=== PATIENT | male | born 1955 | race Caucasian/White ===

== ENCOUNTER 2020-03-15 23:16 | Emergency (ER) | payer BC, MEDICARE ==
--- NOTE | 2020-03-15 23:55 | EDM.PDOC ---
ED HPI GENERAL MEDICAL PROBLEM - General Chief Complaint: Skin Complaint Stated Complaint: TICK BITE Time Seen by Provider: 03/15/20 23:46 Source of Information: Reports: Patient, Family, RN Notes Reviewed History Limitations: Reports: No Limitations - History of Present Illness INITIAL COMMENTS - FREE TEXT/NARRATIVE: 64-year-old gentleman presents emergency department a complaint of a wood tick bite to the back of his left leg, he is positive this was a wood tick not a deer tick but he has noticed some redness and warmth from the bite over the last couple of days - Related Data Allergies Allergy/AdvReac Type Severity Reaction Status Date / Time No Known Allergies Allergy Verified 03/15/20 23:29 Home Meds: Home Meds NK [No Known Home Meds] 03/15/20 [History] Past Medical History HEENT History: Reports: Impaired Vision Musculoskeletal History: Reports: Arthritis Endocrine/Metabolic History: Reports: Obesity/BMI 30+ - Past Surgical History Head Surgeries/Procedures: Reports: None HEENT Surgical History: Reports: None GI Surgical History: Reports: Hernia, Inguinal Endocrine Surgical History: Reports: None Musculoskeletal Surgical History: Reports: Hip Replacement Dermatological Surgical History: Reports: None Social & Family History - Tobacco Use Smoking Status *Q: Never Smoker Second Hand Smoke Exposure: No - Caffeine Use Caffeine Use: Reports: Coffee - Recreational Drug Use Recreational Drug Use: No ED ROS GENERAL - Review of Systems Review Of Systems: See Below Constitutional: Denies: Fever, Chills Skin: Reports: Pallor, Erythema, Wound ED EXAM, SKIN/RASH Exam: See Below Text/Narrative:: Examination of the back of the left leg there is a small ulcer approximately 5 mm in length there is erythema around this progressively getting shrimp picker up to the size of about a softball I do not appreciate any erythema migrans Exam Limited By: No Limitations General Appearance: Alert, WD/WN, No Apparent Distress Course - Vital Signs Last Recorded V/S: Last Vital Signs Temp 97.5 F 03/15/20 23:30 Pulse 72 03/15/20 23:30 Resp 16 03/15/20 23:30 BP 188/110 H 03/15/20 23:36 Pulse Ox 97 03/15/20 23:30 Departure - Departure Time of Disposition: 23:54 Disposition: Home, Self-Care 01 Condition: Fair Clinical Impression: Local infection of wound - Discharge Information Referrals: PCP,None [Primary Care Provider] - Additional Instructions: Take full course of antibiotics, please followup with your primary care provider in 3-5 days if not better, please call return to the emergency department with worsening of symptoms., Sepsis Event Note (ED) - Evaluation Sepsis Screening Result: No Definite Risk - Focused Exam Vital Signs: Vital Signs Temp Pulse Resp BP Pulse Ox 03/15/20 23:36 188/110 H 03/15/20 23:30 97.5 F 72 16 195/114 H 97 - Assessment/Plan Plan: Assessment Acuity = acute Site and laterality = local wound infection Etiology = wood tick bite Manifestations = none Location of injury = Home Lab values = none Plan Elected to treat empirically Keflex 500 mg p.o. 3 times daily x7 days follow-up primary care in 3 to 5 days if not better This note was dictated using [employer] voice recognition software please call with any questions on syntax or grammar.
== END 2020-03-16 00:02 | disposition home or self-care (01) ==
LOC: JP.ED 23:16
DX: L97.829 Non-pressure chronic ulcer of other part of left lower leg with unspecified severity (principal); E66.9 Obesity, unspecified; Z68.36 Body mass index [BMI] 36.0-36.9, adult; W57.XXXA Bitten or stung by nonvenomous insect and other nonvenomous arthropods, initial encounter
CPT/HCPCS: 99282

== ENCOUNTER 2022-06-12 10:16 | Emergency (ER) | payer MEDICARE ==
[2022-06-12] MEDS ORDERED: Lisinopril 10 MG Tab PO ONE (11:00)
== END 2022-06-12 13:44 | disposition home or self-care (01) ==
LOC: JP.ED 10:16
DX: I16.0 Hypertensive urgency (principal); E66.9 Obesity, unspecified; Z68.37 Body mass index [BMI] 37.0-37.9, adult; Z86.16 Personal history of COVID-19; Z72.0 Tobacco use; Z79.899 Other long term (current) drug therapy
CPT/HCPCS: 36415; 71046; 80048; 81001; 85025; 85303; 85306; 85610; 85730; 93005; 99283; A9270

== ENCOUNTER 2022-12-16 20:04 | Emergency (ER) | payer MEDICARE | END 2022-12-16 21:59 | disposition home or self-care (01) | LOC: JP.ED 20:04 | DX: J02.9 Acute pharyngitis, unspecified (principal); Z20.822 Contact with and (suspected) exposure to COVID-19 | CPT/HCPCS: 87081; 87880; 99283; U0002 ==